=== PATIENT | female | born 2000 | race Caucasian/White ===

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

== ENCOUNTER 2023-09-16 16:31 | Emergency (ER) | payer MEDICAID, OTHER ==
[~2023-09-16] VITALS: Ht 160 cm; Wt 75.0 kg
[2023-09-16 16:58] VITALS: BP 104/71; PULSE 93; RESP 18; TEMP 98.6; O2SAT 100
[2023-09-16 17:31] LABS: BASOPHILS % 0.8 % (0.0-2.0); DIFFERENTIAL COMMENT 0; EOSINOPHILS % 2.2 % (0.0-5.0); HEMATOCRIT. 36.3 % (36.0-48.0); HEMOGLOBIN. 11.7 g/dL (12.0-16.0); LYMPHOCYTES % 17.6 % (20.0-50.0); MEAN CORPUSCULAR HEMOGLOBIN 23.3 pg (28.0-32.0); MEAN CORPUSCULAR HGB CONC 32.2 g/dL (31.0-37.0); MEAN CORPUSCULAR VOLUME 72.3 fL (81.0-99.0); MEAN PLATELET VOLUME 11.5 fl (7.4-10.4); NEUTROPHILS % 73.4 % (40.0-76.0); PLATELET 152 x1000/uL (130-400); RED BLOOD CELL COUNT 5.02 mill/uL (4.2-5.4); RED CELL DISTRIBUTION WIDTH 20.1 % (11.6-14.6); WHITE BLOOD COUNT 9.6 x1000/uL (4.5-11.0)
[2023-09-16 17:33] LABS: CHLORIDE 107 mEq/L (98-107); POTASSIUM 4.4 mEq/L (3.5-5.1); SODIUM 141 mEq/L (136-145)
[2023-09-16 17:34] LABS: CALCIUM 9.4 mg/dL (8.7-10.4); CARBON DIOXIDE 26 mEq/L (21-32)
[2023-09-16 17:39] LABS: CREATININE 0.8 mg/dL (0.6-1.0); GLUCOSE 94 mg/dL (70-105); UREA NITROGEN BLOOD 12 mg/dL (9-23)
[2023-09-16] MEDS: CEFTRIAXONE SODIUM 1G VIAL IM ONE (17:45)
[2023-09-16] MEDS: LIDOCAINE HCL/EPINEPHRINE 1%-EPI 1:100,000 20 ML VIAL INFIL ONE (17:45)
[2023-09-16] MEDS: BACITRACIN ZINC OINT UDPKT TOP ONE (17:45)
[2023-09-16] MEDS ORDERED: IBUP-2028 MT (19:20)
[2023-09-16] MEDS ORDERED: CEPH500C2 MT (19:20)
[2023-09-16] MEDS ORDERED: SULF1TAB48 MT (19:20)
[2023-09-16] MEDS: SULFAMETHOXAZOLE/TRIMETHOPRIM 800/160MG TABLET PO ONE (19:30)
== END 2023-09-16 19:38 | disposition home or self-care (01) ==
LOC: ER 16:31
DX: L02.415 Cutaneous abscess of right lower limb (principal); Z98.890 Other specified postprocedural states
CPT/HCPCS: 80048; 81025; 85025; 36415; 10061; 96372; 99284; J0696; J3490; Z7610 ×4